=== PATIENT | female | born 1975 | race Caucasian/White ===

== ENCOUNTER 2017-01-09 19:50 | Emergency (ER) | payer MEDICAID ==
[~2017-01-09] VITALS: Ht 172.7 cm; Wt 74.8 kg
[2017-01-09 20:08] VITALS: BP_SYST 129
[2017-01-09] MEDS ORDERED: HYDR-4100 PO (20:13)
[2017-01-09] MEDS ORDERED: DIPHENHYDRAMINE INJ 50 MG/ML VIAL IM ONE (20:45)
[2017-01-09] MEDS ORDERED: KETOROLAC TROMETHAMINE 30 MG VIAL IM ONE (20:45)
[2017-01-09 21:15] VITALS: BP_SYST 127
== END 2017-01-09 21:15 ==
LOC: SED 19:50
DX: R53.1 Weakness (principal); M25.531 Pain in right wrist; R10.30 Lower abdominal pain, unspecified
CPT/HCPCS: 96372; 99284; J1200; J1885